=== PATIENT | female | born 1950 | race Caucasian/White ===

== ENCOUNTER 2021-10-23 10:45 | Inpatient (IN) | payer OTHER, BC ==
[2021-10-29 11:57] VITALS: BMI 31.1
[2021-10-30] MEDS ORDERED: PROPOFOL 20 ML ONE ×3 (10:22)
[2021-10-30] MEDS ORDERED: TRANEXAMIC ACID 1000 MG/10 ML VIAL ONE (11:10)
[2021-10-30] MEDS ORDERED: ceFAZolin SODIUM 1 GM VIAL ONE ×2 (11:10→20:43)
[2021-10-30] MEDS ORDERED: MIDAZOLAM HCL 2 MG/2 ML SINGLE DOSE VIAL ONE (12:03)
[2021-10-30] MEDS ORDERED: BUPIVACAINE HCL/PF 0.5% (5MG/ML) 10 ML VIAL ONE (12:04)
[2021-10-30] MEDS ORDERED: SODIUM CHLORIDE 0.9% P/F 10 ML VIAL IJ ONE (12:04)
[2021-10-30] MEDS ORDERED: BUPIVACAINE LIPOSOME/PF (EXPAREL) 266 MG/20 ML VIAL ONE (12:04)
[2021-10-30] MEDS ORDERED: BUPIVACAINE HCL 50 ML ONE (12:40)
[2021-10-30] MEDS ORDERED: ePHEDrine SULFATE 50 MG/1 ML AMPULE ONE (13:31)
[2021-10-30] MEDS ORDERED: ceFAZolin SODIUM 1 GM VIAL IVPB ONE (13:42)
[2021-10-30] MEDS ORDERED: MAGNESIUM HYDROX 2400MG/30ML ORAL SUSPENSION 30 ML CUP PO PRN (15:35)
[2021-10-30] MEDS ORDERED: ONDANSETRON 4 MG/2 ML VIAL IVPUSH PRN ×2 (15:35→16:21)
[2021-10-30] MEDS ORDERED: MAG HYDROX/AL HYDROX/SIMETH 30 ML UNIT-DOSE CUP PO PRN (15:35)
[2021-10-30] MEDS ORDERED: ONDANSETRON 4 MG/2 ML VIAL ONE (15:35)
[2021-10-30] MEDS ORDERED: DEXAMETHASONE SOD PHOSPHATE 4 MG/1 ML VIAL ONE (15:35)
[2021-10-30] MEDS ORDERED: PANTOPRAZOLE 20 MG TABLET PO PRN (15:35)
[2021-10-30] MEDS ORDERED: LACTATED RINGERS SOLUTION 1,000 ML IV SCH ×2 (15:45→16:30)
[2021-10-30] MEDS ORDERED: KETOROLAC TROMETHAMINE 30 MG/1 ML VIAL ONE (16:05)
[2021-10-30] MEDS ORDERED: ACETAMINOPHEN INJECTION 100 ML IVPB ONE (16:05)
[2021-10-30] MEDS: ACETAMINOPHEN 1000 MG/100 ML VIAL IVPB ONE ×2 (16:16→19:12)
[2021-10-30] MEDS ORDERED: PROMETHAZINE HCL 25 MG/1 ML VIAL IVPUSH PRN (16:21)
[2021-10-30] MEDS: oxyCODONE HCL 5 MG TABLET PO PRN (19:04)
[2021-10-30] MEDS: KETOROLAC TROMETHAMINE 30 MG/1 ML VIAL IVPUSH SCH ×2 (19:12→22:54)
[2021-10-30] MEDS ORDERED: DEXTROSE 5%-WATER 100 ML IVPB ONE (20:44)
[2021-10-30] MEDS: CEFAZOLIN 2 GM in DEXTROSE 5%-WATER 100 ML IVPB SCH (20:51)
[2021-10-30] MEDS: oxyCODONE HCL 10 MG SUSTAINED ACTING TABLET PO SCH (21:00)
[2021-10-30] MEDS: SENNOSIDES/DOCUSATE COMBO (SENNA PLUS) TABLET (UD) PO SCH (21:02)
[2021-10-30] MEDS: ASPIRIN 81 MG CHEWABLE TABLETS PO SCH (21:02)
[2021-10-31] MEDS: oxyCODONE HCL 5 MG TABLET PO PRN ×4 (00:07→21:25)
[2021-10-31] MEDS ORDERED: HYDROmorphone HCl 2 MG/ML VIAL IVPB ONE (01:45)
[2021-10-31] MEDS: CEFAZOLIN 2 GM in DEXTROSE 5%-WATER 100 ML IVPB SCH ×2 (03:05→09:25)
[2021-10-31 08:28] LABS: CREATININE 0.9 mg/dl (0.55-1.3)
[2021-10-31] MEDS: TRIAMTERENE AND HCTZ - 37.5 MG/25 MG CAPSULE PO SCH (09:39)
[2021-10-31] MEDS: ASPIRIN 81 MG CHEWABLE TABLETS PO SCH ×2 (09:39→21:24)
[2021-10-31] MEDS: CELECOXIB 200 MG CAPSULE PO SCH (09:39)
[2021-10-31] MEDS: PANTOPRAZOLE 40 MG TABLET PO SCH (09:39)
[2021-10-31] MEDS: SENNOSIDES/DOCUSATE COMBO (SENNA PLUS) TABLET (UD) PO SCH ×2 (09:39→21:24)
[2021-10-31] MEDS: oxyCODONE HCL 10 MG SUSTAINED ACTING TABLET PO SCH ×2 (09:41→21:24)
[2021-10-31 09:55] LABS: HEMATOCRIT 37.5 % (32.4-45.2); HEMOGLOBIN 12.2 GM/dL (10.7-15.3); MCH 27.8 pg (25.7-33.7); MCHC 32.6 g/dl (32.0-36.0); MEAN CELL VOLUME 85.5 fl (80-96); MEAN PLT VOLUME 10.2 fl (7.5-11.1); PLATELET COUNT 204 10^3/uL (134-434); RBC 4.39 M/mm3 (3.60-5.2); RDW 14.6 % (11.6-15.6); WHITE BLOOD COUNT 12.5 K/mm3 (4.0-10.0)
[2021-11-01] MEDS: oxyCODONE HCL 5 MG TABLET PO PRN ×2 (06:25→11:49)
[2021-11-01] MEDS: CELECOXIB 200 MG CAPSULE PO SCH (10:14)
[2021-11-01] MEDS: ASPIRIN 81 MG CHEWABLE TABLETS PO SCH (10:14)
[2021-11-01] MEDS: oxyCODONE HCL 10 MG SUSTAINED ACTING TABLET PO SCH (10:15)
[2021-11-01] MEDS: SENNOSIDES/DOCUSATE COMBO (SENNA PLUS) TABLET (UD) PO SCH (10:15)
[2021-11-01] MEDS: PANTOPRAZOLE 40 MG TABLET PO SCH (10:15)
[2021-11-01] MEDS: TRIAMTERENE AND HCTZ - 37.5 MG/25 MG CAPSULE PO SCH (10:15)
[2021-11-01 12:50] LABS: HEMATOCRIT 33.9 % (32.4-45.2); HEMOGLOBIN 11.2 GM/dL (10.7-15.3); MEAN CELL VOLUME 84.9 fl (80-96); MEAN PLT VOLUME 10.2 fl (7.5-11.1); PLATELET COUNT 203 10^3/uL (134-434); RDW 14.2 % (11.6-15.6); WHITE BLOOD COUNT 13.4 K/mm3 (4.0-10.0)
[2021-11-01 14:33] VITALS: BP 150/50; PULSE 89; TEMP 98.4
== END 2021-11-01 15:34 | disposition home health service (06) | DRG 470 ==
LOC: FM/S 10-30 09:16
PROVIDERS: ADMIT Orthopaedic Surgery Orthopaedic Surgery of the Spine; ATTEND Orthopaedic Surgery Orthopaedic Surgery of the Spine
PROC: 0SRC0JZ Replacement of Right Knee Joint with Synthetic Substitute, Open Approach (ICD-10-PCS; principal; 2021-10-30 13:45)
DX: M17.11 Unilateral primary osteoarthritis, right knee (principal); I10 Essential (primary) hypertension; K21.9 Gastro-esophageal reflux disease without esophagitis
CPT/HCPCS: 36415; 73560-TC-RT-FY; 80048; 85027; 88305-TC; 88311-TC; 94760; 97010-GP; 97116-GP; 97163-GP; C9803; J0131; U0003; U0005

== ENCOUNTER 2022-03-05 05:51 | Inpatient (IN) | payer OTHER, BC ==
[2022-03-03 11:35] VITALS: BMI 30.7
[2022-03-05] MEDS ORDERED: DEXMEDETOMIDINE HCL 200 MCG/2 ML IVPB ONE (07:10)
[2022-03-05] MEDS ORDERED: PROPOFOL 20 ML ONE ×2 (07:12)
[2022-03-05] MEDS ORDERED: MIDAZOLAM HCL 2 MG/2 ML SINGLE DOSE VIAL ONE ×5 (07:12→09:56)
[2022-03-05] MEDS ORDERED: BUPIVACAINE LIPOSOME/PF (EXPAREL) 266 MG/20 ML VIAL ONE (07:33)
[2022-03-05] MEDS ORDERED: SODIUM CHLORIDE 0.9% P/F 10 ML VIAL IJ ONE (07:33)
[2022-03-05] MEDS ORDERED: BUPIVACAINE HCL/PF 0.5% (5MG/ML) 10 ML VIAL ONE (07:33)
[2022-03-05] MEDS ORDERED: BUPIVACAINE HCL 50 ML ONE (08:10)
[2022-03-05] MEDS ORDERED: MAG HYDROX/AL HYDROX/SIMETH 30 ML UNIT-DOSE CUP PO PRN (11:21)
[2022-03-05] MEDS ORDERED: MAGNESIUM HYDROX 2400MG/30ML ORAL SUSPENSION 30 ML CUP PO PRN (11:21)
[2022-03-05] MEDS ORDERED: ONDANSETRON 4 MG/2 ML VIAL IVPUSH PRN ×2 (11:21→11:31)
[2022-03-05] MEDS ORDERED: LACTATED RINGERS SOLUTION 1,000 ML IV SCH (11:30)
[2022-03-05] MEDS ORDERED: oxyCODONE HCL 5 MG TABLET PO PRN (11:31)
[2022-03-05] MEDS: ACETAMINOPHEN 1000 MG/100 ML BAG IVPB ONE ×2 (11:56→17:07)
[2022-03-05] MEDS: KETOROLAC TROMETHAMINE 30 MG/1 ML VIAL IVPUSH SCH ×2 (17:02→17:05)
[2022-03-05] MEDS: oxyCODONE HCL 5 MG TABLET PO PRN ×3 (17:02→22:56)
[2022-03-05] MEDS: LACTATED RINGERS SOLUTION 1,000 ML IV SCH (17:06)
[2022-03-05] MEDS ORDERED: ceFAZolin SODIUM 1 GM VIAL ONE (18:13)
[2022-03-05] MEDS ORDERED: DEXTROSE 5%-WATER - 50 ML IVPB ONE (18:13)
[2022-03-05] MEDS: CEFAZOLIN 2 GM in DEXTROSE 5%-WATER - 50 ML IVPB SCH (18:18)
[2022-03-05] MEDS: SENNOSIDES/DOCUSATE COMBO (SENNA PLUS) TABLET (UD) PO SCH (21:43)
[2022-03-05] MEDS: oxyCODONE HCL 10 MG SUSTAINED ACTING TABLET PO SCH (21:43)
[2022-03-06] MEDS: CEFAZOLIN 2 GM in DEXTROSE 5%-WATER - 50 ML IVPB SCH (02:00)
[2022-03-06] MEDS ORDERED: DEXTROSE 5%-WATER - 50 ML IVPB ONE (03:54)
[2022-03-06] MEDS ORDERED: ceFAZolin SODIUM 1 GM VIAL ONE (03:54)
[2022-03-06] MEDS: oxyCODONE HCL 5 MG TABLET PO PRN ×2 (05:34→20:35)
[2022-03-06] MEDS: MULTIVITAMINS (DAILY MVI) TABLET (FP) PO SCH (09:24)
[2022-03-06] MEDS: SENNOSIDES/DOCUSATE COMBO (SENNA PLUS) TABLET (UD) PO SCH ×2 (09:24→21:41)
[2022-03-06] MEDS: ASPIRIN 81 MG CHEWABLE TABLETS PO SCH ×2 (09:25→21:40)
[2022-03-06] MEDS: oxyCODONE HCL 10 MG SUSTAINED ACTING TABLET PO SCH ×2 (09:25→21:41)
[2022-03-06] MEDS: TRIAMTERENE AND HCTZ - 37.5 MG/25 MG CAPSULE PO SCH (09:25)
[2022-03-06] MEDS: PANTOPRAZOLE 40 MG TABLET PO SCH (09:25)
[2022-03-06] MEDS: CELECOXIB 200 MG CAPSULE PO SCH (09:25)
[2022-03-06 09:40] LABS: CALCIUM 9.1 mg/dl (8.5-10); CREATININE 0.8 mg/dl (0.55-1.3)
[2022-03-06 10:30] LABS: HEMATOCRIT 30.8 % (32.4-45.2); HEMOGLOBIN 10.6 G/dL (10.7-15.3); MCH 27.6 pg (25.7-33.7); MCHC 34.3 g/dl (32.0-36.0); MEAN CELL VOLUME 80.6 fl (80-96); MEAN PLT VOLUME 9.4 fl (7.5-11.1); RBC 3.82 10^6/uL (3.60-5.2); RDW 15.7 % (11.6-15.6); WHITE BLOOD COUNT 9.8 10^3/uL (4.0-10.8)
[2022-03-06] MEDS: LACTATED RINGERS SOLUTION 1,000 ML IV SCH (19:31)
[2022-03-07] MEDS: oxyCODONE HCL 5 MG TABLET PO PRN (06:11)
[2022-03-07 08:15] LABS: HEMATOCRIT 28.9 % (32.4-45.2); HEMOGLOBIN 9.8 G/dL (10.7-15.3); MCH 27.4 pg (25.7-33.7); MEAN CELL VOLUME 80.6 fl (80-96); MEAN PLT VOLUME 9.3 fl (7.5-11.1); PLATELET COUNT 210.1 10^3/uL (134-434); RBC 3.59 10^6/uL (3.60-5.2); RDW 16.1 % (11.6-15.6); WHITE BLOOD COUNT 10.4 10^3/uL (4.0-10.8)
[2022-03-07] MEDS: ASPIRIN 81 MG CHEWABLE TABLETS PO SCH (10:04)
[2022-03-07] MEDS: PANTOPRAZOLE 40 MG TABLET PO SCH (10:04)
[2022-03-07] MEDS: TRIAMTERENE AND HCTZ - 37.5 MG/25 MG CAPSULE PO SCH (10:04)
[2022-03-07] MEDS: CELECOXIB 200 MG CAPSULE PO SCH (10:04)
[2022-03-07] MEDS: MULTIVITAMINS (DAILY MVI) TABLET (FP) PO SCH (10:04)
[2022-03-07] MEDS: oxyCODONE HCL 10 MG SUSTAINED ACTING TABLET PO SCH (10:05)
[2022-03-07] MEDS: SENNOSIDES/DOCUSATE COMBO (SENNA PLUS) TABLET (UD) PO SCH (10:13)
[2022-03-07 11:13] VITALS: BP 114/61; PULSE 85; TEMP 98.8
[2022-03-07] MEDS: LACTATED RINGERS SOLUTION 1,000 ML IV SCH (11:45)
== END 2022-03-07 12:32 | disposition home or self-care (01) | DRG 470 ==
LOC: FM/S 05:51 → EDSTATUS 13:00
PROVIDERS: ADMIT Orthopaedic Surgery Orthopaedic Surgery of the Spine; ATTEND Nurse Practitioner Acute Care
PROC: 0SRD0J9 Replacement of Left Knee Joint with Synthetic Substitute, Cemented, Open Approach (ICD-10-PCS; principal; 2022-03-05 08:55)
DX: M17.12 Unilateral primary osteoarthritis, left knee (principal); I10 Essential (primary) hypertension; K21.9 Gastro-esophageal reflux disease without esophagitis
CPT/HCPCS: 36415; 73560-TC-LT-FY; 80048; 85027; 88305-TC; 88311-TC; 94760; 97010-GP; 97116-GP; 97161-GP; C9803-CS; U0003; U0005